=== PATIENT | male | born 1975 | race Hispanic/Latino ===

== ENCOUNTER → 2024-08-24 | Outpatient (CLI) | payer OTHER ==
--- NOTE | 2024-08-24 14:35 | NUR ---
MBSS COMPLETED (OUTPATIENT). No aspiration/no penetrations. Recommend regular solids, thin liquids and pills whole with liquids as tolerated. Compensatory strategies: 1. sit upright during oral intake 2. extra dry swallows EVENING ANCHOR reviewed results and recommendations with patient. EVENING ANCHOR educated patient on risks and consequences of aspiration. Speech therapy not warranted at this time. All questions answered. Addendum: 08/24/[address] TOM YI Amended: Links added.
--- NOTE | 2024-08-24 15:43 | HMCIMG ---
MODIFIED BARIUM SWALLOW W CINE REASON: Dysphagia, oropharyngeal phase FINDINGS: Fluoroscopic assistance was provided to the speech pathologist while performing examination. For findings and dietary recommendations, refer to speech pathologist's report. FLUORO TIME: 3.8 minutes IMPRESSION: Modified barium swallow as described.
== END | disposition home or self-care (01) ==
LOC: RAH 13:30
PROVIDERS: ATTEND Family Medicine
DX: R13.12 Dysphagia, oropharyngeal phase (principal)
CPT/HCPCS: 74230; 92611